=== PATIENT | female | born 1935 | race Caucasian/White ===

== ENCOUNTER 2017-03-06 08:18 | Day surgery (SDC) | payer OTHER ==
[~2017-03-06] VITALS: Ht 170.2 cm; Wt 72.6 kg
[~2017-03-06 08:18] MED LIST: CEFAZOLIN 1 GM IVPB PREMIX 50 ML IV ONE
[2017-03-06] MEDS ORDERED: SEVOFLURANE 15 MIN GAS INH ONE (08:19)
[2017-03-06] MEDS ORDERED: NS IRRIG SOLN 1000 ML IR ONE (08:19)
[2017-03-06] MEDS ORDERED: LR 1,000 ML IV.SOLN IV ONE (08:19)
[2017-03-06] MEDS ORDERED: KETOROLAC TROMETHAMINE 30 MG VIAL IVP ONE (08:19)
[2017-03-06] MEDS ORDERED: ISOSULFAN BLUE 5 ML VIAL (LYMPHAZURIN) INJ ONE (08:19)
[2017-03-06] MEDS ORDERED: MIDAZOLAM HCL 5 MG/ML VIAL (VERSED) IV ONE (08:19)
[2017-03-06] MEDS ORDERED: fentaNYL CITRATE/PF 100 MCG/2 ML AMP IVP ONE (08:19)
[2017-03-06] MEDS ORDERED: ONDANSETRON HCL 4 MG/2 ML VIAL IVP ONE (08:19)
[2017-03-06] MEDS ORDERED: PROPOFOL 200MG/ 20ML VIAL (DIPRIVAN) IV ONE (08:19)
[2017-03-06] MEDS ORDERED: POLYMYXIN 500,000/BACIT.10,000 UNITS in NS IRR 1 L IR ONE (12:05)
[2017-03-06] MEDS ORDERED: LR 1,000 ML IV SCH (12:28)
[2017-03-06] MEDS ORDERED: ONDANSETRON HCL 4 MG/2 ML VIAL IVP PRN (12:30)
[2017-03-06] MEDS ORDERED: HYDROmorphone 2 MG/ML VIAL IVP PRN ×2 (12:30)
[2017-03-06] MEDS ORDERED: HYDROmorphone 1 MG INJ. 1 MG/ML AMPUL IVP PRN ×2 (12:30→13:45)
[2017-03-06] MEDS ORDERED: MEPERIDINE HCL/PF 25 MG/ML DISP.SYRIN IVP PRN ×2 (12:30)
[2017-03-06] MEDS ORDERED: HYDROcodone/ACETAMIN 5-325 MG TAB (NORCO/ VICODIN) PO PRN ×2 (13:45→15:30)
[2017-03-06] MEDS ORDERED: HYDROmorphone 1 MG INJ. 1 MG/ML AMPUL ONE (14:18)
[2017-03-06 15:20] VITALS: BP_SYST 146
[2017-03-06] MEDS ORDERED: D5/0.45 NS 1,000 ML IV SCH (15:30)
== END 2017-03-06 17:10 | disposition home or self-care (01) ==
LOC: SDS 08:18 → SMU 08:19 → EDSTATUS 12:00 → SDS 17:10
PROVIDERS: ATTEND Colon & Rectal Surgery
DX: C50.912 Malignant neoplasm of unspecified site of left female breast (principal); D36.0 Benign neoplasm of lymph nodes; I70.0 Atherosclerosis of aorta; Z90.710 Acquired absence of both cervix and uterus; Z98.890 Other specified postprocedural states; Z87.891 Personal history of nicotine dependence; Z79.899 Other long term (current) drug therapy; E78.00 Pure hypercholesterolemia, unspecified; I12.9 Hypertensive chronic kidney disease with stage 1 through stage 4 chronic kidney disease, or unspecified chronic kidney disease; N18.2 Chronic kidney disease, stage 2 (mild)
CPT/HCPCS: 19281; 19301; 38525; 78195; 88305; 88307; 88342; A9541; J0690; J1170; J1885; J2250; J2405; J2704; J3010; J7120; Q9968